=== PATIENT | female | born 1995 | race African-American/Black ===

== ENCOUNTER 2022-09-21 18:50 | Emergency (ER) | payer BC, SELFPAY ==
[2022-09-21 19:00] VITALS: BP 144/85; PULSE 96; RESP 18; TEMP 36.4; O2SAT 99
[2022-09-21 19:20] VITALS: BP 127/80
[2022-09-21] MEDS: SODIUM CHLORIDE 0.9% IV 1,000 ML 999 ML IV CONT (19:47)
[2022-09-21] MEDS: ONDANSETRON INJ 4 MG/2 ML VIAL IV PUSH (19:47)
[2022-09-21] MEDS: LOPERAMIDE HCL 2 MG CAPSULE 4 MG PO (19:47)
--- NOTE | 2022-09-21 19:54 | ED.GENADULT ---
HPI - General Adult General Chief complaint: Nausea/Vomiting/Diarrhea Stated complaint: diarrhea Time Seen by Provider: 09/21/22 19:31 History of Present Illness HPI narrative: Patient is a 27-year-old female who presents the emergency department with chief complaint of nausea vomiting and diarrhea. Patient reports that couple days ago she started having vomiting and then started having diarrhea. The patient states she really does not have much abdominal pain does have a bit of cramping but reports that she has not been able to eat or drink anything as she keeps vomiting and having diarrhea. Patient reports no blood in her stool denies localizing abdominal pain reports no prior abdominal surgeries. Related Data Allergies Allergy/AdvReac Type Severity Reaction Status Date / Time No Known Allergies Allergy Unverified 01/03/19 14:57 Review of Systems Review of Systems: A 10 system review of systems was completed on the patient and is negative except for what is stated in the HPI. Nursing and ancillary documentation was reviewed. Exam Narrative: GENERAL: Well-appearing, well-nourished, and in no acute distress. HEAD: Normocephalic, atraumatic. EYES: PERRLA and EOMI. ENT: Nares clear, no rhinorrhea or epistaxis. Mucous membranes moist. NECK: Supple. CHEST: Clear to auscultation. No respiratory distress. HEART: Regular rate and rhythm. No murmur heard. Normal peripheral pulses. ABDOMEN: Soft, nontender, nondistended, normal active bowel sounds. EXTREMITIES: Normal range of motion. No edema. SKIN: Warm, dry, no rash. NEURO: No focal deficits. Alert and oriented x3. PSYCH: Normal mood and affect. Course Vital Signs Vital signs: Vital Signs Temperature 36.4 C 09/21/22 19:00 Pulse Rate 96 09/21/22 19:00 Respiratory Rate 18 09/21/22 19:00 Blood Pressure 144/85 H 09/21/22 19:00 Pulse Oximetry 99 09/21/22 19:00 Temperature 36.6 C 09/21/22 20:02 Pulse Rate 79 09/21/22 20:02 Respiratory Rate 18 09/21/22 20:02 Blood Pressure 135/75 09/21/22 20:02 Pulse Oximetry 100 09/21/22 20:15 Medical Decision Making MDM Narrative Medical decision making narrative: Differential diagnosis includes UTI, gastroenteritis, diverticulitis appendicitis cholecystitis. Laboratory studies were reviewed which showed a white blood cell count of 11.3 hemoglobin of 12.3 electrolytes were within normal limits urinalysis showed no evidence of UTI and a specific gravity 1.026. test was negative Patient received a liter of normal saline and received Zofran and Imodium. Patient is feeling much better at this time and is able to tolerate p.o. intake. Patient will be discharged home with a short course of Zofran. At this time imaging was not required as the patient is currently not tender in her abdomen and labs are not consistent with appendicitis or cholecystitis. The patient was informed of precautions to return to the emergency department if she has localizing abdominal pain. Vital Signs Vital Signs: Vital Signs Temperature 36.4 C 09/21/22 19:00 Pulse Rate 96 09/21/22 19:00 Respiratory Rate 18 09/21/22 19:00 Blood Pressure 144/85 H 09/21/22 19:00 Pulse Oximetry 99 09/21/22 19:00 Temperature 36.6 C 09/21/22 20:02 Pulse Rate 79 09/21/22 20:02 Respiratory Rate 18 09/21/22 20:02 Blood Pressure 135/75 09/21/22 20:02 Pulse Oximetry 100 09/21/22 20:15 Lab Data 09/21/22 19:47 09/21/22 19:47 Labs: Lab Results 09/21/22 09/21/22 09/21/22 Range/Units 19:47 19:47 19:58 WBC 11.3 H (4.5-10.0) K/mm3 RBC 5.90 H (4.2-5.4) M/mm3 Hgb 12.3 (12.0-15.0) g/dL Hct 41.3 (37.0-47.0) % MCV 70.0 L (80-100) fl MCH 20.8 L (26-34) pg MCHC 29.8 L (32-36) g/dl RDW 17.2 H (11.5-14.5) % Plt Count 288 (150-375) k/mm3 MPV 11.1 H (7.4-10.4) fl Immature Gran % (Auto) 0.4 (0-0.5) % Neut % (Auto) 7
[2022-09-21 19:56] LABS: Basophils Percent Auto 0.1 % (0.2-1.2); Eosinophils Absolute Auto 0.1 K/mm3 (0-0.3); Hematocrit 41.3 % (37.0-47.0); Hemoglobin 12.3 g/dL (12.0-15.0); Immature Granulocyte Absolute 0.04 K/mm3 (0.00-0.031); Immature Granulocyte Percent A 0.4 % (0-0.5); Lymphocytes Absolute Auto 2.46 K/mm3 (0.9-3.2); Lymphocytes Percent Auto 21.8 % (18.3-44.2); Mean Corpuscular HGB Conc 29.8 g/dl (32-36); Mean Corpuscular Hemoglobin 20.8 pg (26-34); Mean Platelet Volume 11.1 fl (7.4-10.4); Monocytes Absolute Auto 0.7 K/mm3 (0.1-0.6); Monocytes Percent Auto 5.8 % (2.6-8.5); Neutrophils Percent Auto 70.9 % (45.5-73.1); Platelet Count Result 288 k/mm3 (150-375); Red Cell Distribution Width 17.2 % (11.5-14.5); White Blood Count 11.3 K/mm3 (4.5-10.0)
[2022-09-21 20:02] VITALS: BP 135/75; PULSE 79; RESP 18; TEMP 36.6; O2SAT 100
[2022-09-21 20:03] VITALS: O2SAT 100
[2022-09-21 20:09] LABS: Appearance Urine Clear (Clear); Bilirubin Urine Negative (Negative); Blood Urine Negative (Negative); Color Urine Yellow (Yellow); Glucose Urine UA Negative (Negative); Ketones Urine Negative (Negative); Leukocyte Esterase Ur Negative LEU/UL (Negative); Nitrate Urine Negative (Negative); Protein Urine Negative (Negative); Specific Grav Ur 1.026 (1.001-1.035); Urobilinogen Urine 0.2 mg/dL (<2.0); pH Urine 5.5 (5.0-9.0)
[2022-09-21 20:09] LABS: Alanine Aminotransferase 24 U/L (6-35); Albumin Level 4.5 g/dL (3.5-5.1); Alkaline Phosphatase 73 U/L (38-126); Anion Gap 8 mmol/L (8-16); Aspartate Amino Transferase 29 U/L (14-36); Bilirubin,Total 0.4 mg/dL (0.2-1.3); Blood Urea Nitrogen 10 mg/dL (7-17); Calcium 8.9 mg/dL (8.4-10.2); Carbon Dioxide 27 mmol/L (22-30); Chloride 106 mmol/L (98-107); Estimated CRCL calculation 138 ml/min; Estimated Glomerular Filt Rate > 60; Glucose 85 mg/dL (65-110); Lipase 56 U/L (23-300); Sodium 141 mmol/L (137-145)
[2022-09-21 20:10] LABS: Hypochromasia 1+ (NORMAL); Platelet Estimate Adequate (Adequate); Schistocytes None Seen (NORMAL)
[2022-09-21 20:11] LABS: Anisocytosis 2+ (NORMAL)
[2022-09-21 20:15] VITALS: O2SAT 100
[2022-09-21 20:40] LABS: Pregnancy On Board Control Positive; Urine Pregnancy Test Negative
[2022-09-21 20:43] LABS: Add Urine Microscopic? NO
--- NOTE | 2022-09-21 22:35 | PC.NURSE ---
PO challenge started per Dr. Tamez
[2022-09-21 22:48] VITALS: BP 123/79; PULSE 69; RESP 18; TEMP 36.6; O2SAT 99
== END 2022-09-21 22:48 | disposition home or self-care (01) ==
PROVIDERS: Emergency Provider Emergency Medicine
DX: K52.9 Noninfective gastroenteritis and colitis, unspecified (principal)
CPT/HCPCS: 36415; 80053; 81003; 81025; 83690; 85025; 96361; 96374; 99284; A9270; J2405; J7030

== ENCOUNTER 2022-10-31 13:31 | Emergency (ER) | payer BC, SELFPAY ==
[2022-10-31 13:38] VITALS: BP 124/86; PULSE 88; RESP 16; TEMP 36.8; O2SAT 100
--- NOTE | 2022-10-31 14:14 | ED.BACK ---
HPI - Back Pain/Injury General Chief Complaint: Back Pain/Injury Stated Complaint: back pain Time Seen by Provider: 10/31/22 13:53 History of Present Illness HPI Narrative: Patient is a 27-year-old female presenting with back pain. Patient states that since last night she has had some mid right-sided back pain. States that it feels like muscle spasms. States that she took some Tylenol earlier today which did improve the pain. States she was at work when it returned. She denies recent injuries or trauma. She denies midline pain. She denies abdominal pain, nausea or vomiting, dysuria, hematuria, changes in bowel movements. She denies fevers or chills, chest pain, shortness of breath, cough, leg swelling. Related Data Allergies Allergy/AdvReac Type Severity Reaction Status Date / Time No Known Allergies Allergy Unverified 10/31/22 13:39 Review of Systems Review of Systems: All systems reviewed & are unremarkable except as noted in HPI and below Exam Narrative: GENERAL: Well-appearing, well-nourished, and in no acute distress. HEAD: Normocephalic, atraumatic. EYES: PERRLA and EOMI. ENT: Nares clear, no rhinorrhea or epistaxis. Mucous membranes moist. NECK/BACK: Supple. No midline tenderness, reproducible right flank pain CHEST: Clear to auscultation. No respiratory distress. HEART: Regular rate and rhythm. No murmur heard. Normal peripheral pulses. ABDOMEN: Soft, nontender, nondistended, no guarding or rebound EXTREMITIES: Normal range of motion. No edema. SKIN: Warm, dry, no rash. NEURO: No focal deficits. Alert and oriented x3. PSYCH: Normal mood and affect. Course Vital Signs Vital signs: Vital Signs Temperature 98.2 F 10/31/22 13:38 Pulse Rate 88 10/31/22 13:38 Respiratory Rate 16 10/31/22 13:38 Blood Pressure 124/86 10/31/22 13:38 Pulse Oximetry 100 10/31/22 13:38 Oxygen Delivery Room Air 10/31/22 13:38 Temperature 98.2 F 10/31/22 13:38 Pulse Rate 81 10/31/22 14:36 Respiratory Rate 19 10/31/22 14:36 Blood Pressure 123/89 10/31/22 14:36 Pulse Oximetry 99 10/31/22 14:36 Oxygen Delivery Room Air 10/31/22 13:38 MDM - Back Pain/Injury MDM Narrative Medical decision making narrative: Patient is a 27-year-old female presenting with right-sided back pain. Vitals within normal limits. Exam is remarkable for the above. Patient describes the pain as muscle spasms that responded to Tylenol. She denies any recent trauma or injuries. She denies any associated symptoms. No abdominal complaints. No neurologic complaints. Do not feel imaging is warranted at this time. Will treat with Tylenol and ibuprofen and will send in a prescription for Flexeril. Advised that she follow-up with PCP. Appropriate return precautions given. Discharged in stable condition. Differential Diagnosis Differential diagnosis: Likely lumbar radiculopathy, strain of lumbar region, thoracic back pain and other (musculoskeletal pain, muscle spasms) Lab Data Labs: UCG Bedside Result Negative Reference Range: Negative Critical Care Time Critical Care Time Critical Care Time: No Discharge Plan Discharge Clinical Impression: Mid back pain on right side, Muscle spasm Patient Disposition: Home, Self-Care Condition: Stable Instructions: Antibiotic Form, Back Pain (ED) Additional Instructions: Please use Tylenol and ibuprofen for pain control. Please use Flexeril as needed for muscle spasms. Please follow-up closely with primary care. If your symptoms suddenly worsen, you develop numbness or weakness, nausea or vomiting, or other concerning symptoms arise, please return to the ER. Prescriptions: New cyclobenzaprine 10 mg tablet 10 mg PO TID PRN (Reason: muscle spasm) Qty: 20 0RF No Action ondansetron 4 mg tablet,disintegrating 4 mg PO Q8H PRN (Reason: nausea and vomiting) Qty: 10 0RF Follow-
[2022-10-31 14:36] VITALS: BP 123/89; PULSE 81; RESP 19; O2SAT 99
== END 2022-10-31 14:38 | disposition home or self-care (01) ==
PROVIDERS: Emergency Provider Emergency Medicine
DX: M62.830 Muscle spasm of back (principal); M54.6 Pain in thoracic spine
CPT/HCPCS: 81025; 99283

== ENCOUNTER 2022-11-02 12:12 | Emergency (ER) | payer BC, SELFPAY ==
[2022-11-02 12:15] VITALS: BP 138/66; PULSE 92; RESP 16; TEMP 36.6; O2SAT 100
--- NOTE | 2022-11-02 13:03 | ED.BACK ---
HPI - Back Pain/Injury General Chief Complaint: Back Pain/Injury Stated Complaint: back pain Time Seen by Provider: 11/02/22 12:29 Source: patient Mode of arrival: ambulatory Limitations: no limitations History of Present Illness HPI Narrative: This is a 27-year-old female presents the ED with chief complaint of right-sided middle back pain x2 days. Patient was seen here at initial onset and was given muscle relaxers. Patient states that the muscle relaxers have not been helping is why she is here today. Denies any new pattern of symptoms. Describes a tightness in the right mid back. Denies fevers, chills, abdominal pain, urinary symptoms. Denies numbness or weakness. Related Data Allergies Allergy/AdvReac Type Severity Reaction Status Date / Time No Known Allergies Allergy Unverified 10/31/22 13:39 Review of Systems Review of Systems: CONSTITUTIONAL: Denies fever, chills, or sweats. SKIN: Denies rash or itching. MUSCULOSKELETAL: See HPI NEUROLOGIC: Denies headache, numbness, dizziness, or weakness. PSYCHIATRIC: Denies anxiety or depression. Exam Narrative: GENERAL: Well-appearing, well-nourished, and in no acute distress. HEAD: Normocephalic, atraumatic. EXTREMITIES/SPINE: Mild right thoracic back muscle spasm noted. Minimal tenderness. No skin changes. No midline tenderness throughout the CTLS spine. Negative for flank tenderness MSK exam is otherwise benign. Normal range of motion. No edema. SKIN: Warm, dry, no rash. NEURO: Alert and oriented x3. No focal deficits. No saddle anesthesia. PSYCH: Normal mood and affect. Course Vital Signs Vital signs: Vital Signs Temperature 97.9 F 11/02/22 12:15 Pulse Rate 92 11/02/22 12:15 Respiratory Rate 16 11/02/22 12:15 Blood Pressure 138/66 11/02/22 12:15 Pulse Oximetry 100 11/02/22 12:15 Oxygen Delivery Room Air 11/02/22 12:15 Temperature 97.9 F 11/02/22 12:15 Pulse Rate 92 11/02/22 12:15 Respiratory Rate 16 11/02/22 12:15 Blood Pressure 138/66 11/02/22 12:15 Pulse Oximetry 100 11/02/22 12:15 Oxygen Delivery Room Air 11/02/22 12:15 MDM - Back Pain/Injury MDM Narrative Medical decision making narrative: This is a 27-year-old female presents the ED with chief complaint of right mid back pain ongoing for 2 to 3 days. She was seen here for the same and given muscle relaxers that did not help. Vitals are stable. Symptoms are unchanged. Exam reassuring. Offered imaging but patient declines. Feel this is very reasonable as this is likely a muscle spasm. UA negative. UPT negative. She improved with Toradol here in the ED. Encouraged taking ibuprofen rather than just Tylenol for this problem. Other supportive measures discussed and return precautions given. No red flag back signs or symptoms. Stable for discharge. Patient is agreeable and understanding with the plan for discharge and follow-up with PCP. Lab Data Labs: Lab Results 11/02/22 Range/Units 13:19 Urine Color Yellow (Yellow) Urine Appearance Clear (Clear) Urine pH 7.0 (5.0-9.0) Ur Specific [place] 1.022 (1.001-1.035) Urine Protein Negative (Negative) mg/dL Urine Glucose (UA) Negative (Negative) mg/dL Urine Ketones Negative (Negative) mg/dL Ur Blood (Man) Negative (Negative) Urine Nitrate Negative (Negative) Urine Bilirubin Negative (Negative) Urine Urobilinogen 1.0 (<2.0) mg/dL Leukocyte Esterase Rfl Negative (Negative) DANIKA/UL UCG Bedside Result Negative Reference Range: Negative Discharge Plan Discharge Clinical Impression: Spasm of back muscles Patient Disposition: Home, Self-Care Condition: Stable Additional Instructions: Please make sure that you are taking 600 mg of ibuprofen with the Tylenol when the pain arises. This should help greatly with the inflammation. You can take the muscle relaxer as needed. Also
[2022-11-02] MEDS: KETOROLAC (*BKC) 60 MG/2 ML VIAL IM (13:19)
[2022-11-02 13:33] LABS: Appearance Urine Clear (Clear); Bilirubin Urine Negative (Negative); Blood Urine Negative (Negative); Color Urine Yellow (Yellow); Glucose Urine UA Negative (Negative); Ketones Urine Negative (Negative); Leukocyte Esterase Ur Negative LEU/UL (Negative); Nitrate Urine Negative (Negative); Protein Urine Negative (Negative); Specific Grav Ur 1.022 (1.001-1.035)
[2022-11-02 13:35] LABS: Add Urine Microscopic? NO
== END 2022-11-02 14:40 | disposition home or self-care (01) ==
PROVIDERS: Emergency Medicine; Emergency Provider Physician Assistant
DX: M62.830 Muscle spasm of back (principal)
CPT/HCPCS: 81003; 81025; 96372; 99283; J1885